=== PATIENT | female | born 1995 | race Caucasian/White ===

== ENCOUNTER → 2016-12-08 | Outpatient (CLI) | payer OTHER ==
--- NOTE | 2016-12-08 12:15 | WWHP ---
DATE OF SERVICE: 12/08/2016 CHIEF COMPLAINT: The patient is here for her routine gynecologic exam. HPI: This is a 21-year-old G0 with an LMP of 11/20/2016. The patient had a Mirena IUD placed by Dr. Renee in 10/2015. She states since then her periods have been infrequent and very light. Most months she does not have a period. She is without gynecologic complaints. PAST MEDICAL HISTORY: ADHD in the past. MEDICATIONS: None. ALLERGIES: No known drug allergies. PAST SURGICAL HISTORY: Unchanged from the 2015 H&P. 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 SOCIAL HISTORY: She denies tobacco and drug use and has less than 10 alcoholic drinks per month. She has been with her current boyfriend since 07/19 and does not live with him. 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 FAMILY HISTORY: Mother was diagnosed with early breast cancer at age 53. Father has type 2 diabetes. REVIEW OF SYSTEMS: She has gained about 3 pounds over the last year. She denies respiratory, cardiac, or GI problems. PHYSICAL EXAM: Blood pressure 125/59. Height 5 feet 3 inches. Weight 153 pounds. Temperature 97.0, pulse 65. This a well-developed, well-nourished white female who is alert and oriented x3 in no acute distress. HEENT is within normal limits. NECK: Supple without mass or thyromegaly. CHEST AND LUNGS: Clear to auscultation. HEART: Regular rate and rhythm. Breasts are without mass or discharge. Axillary exam is negative for adenopathy. BACK: Negative for CVA tenderness. ABDOMEN: Soft, nontender, without palpable masses. PELVIC EXAM: Normal external genitalia. Cervix and vagina appear normal. The IUD string protrudes from the cervix approximately 1 cm. There is no unusual discharge and no cervical motion tenderness. The uterus is slightly retroverted, nongravid size and nontender. There are no palpable adnexal masses or tenderness. Rectal exam was deferred. EXTREMITIES: Nontender. IMPRESSION: A 21-year-old gynecologically healthy female with the Mirena IUD in place and she is doing well with the IUD. PLAN: 1. Pap smear was deferred, since she had a normal one less than 2 years ago. 2. Self breast examination was discussed. 3. GC and Chlamydia screening from the cervix has been obtained. 4. STD prevention was discussed. I have recommended condom use. 5. She will return in one year.
== END | disposition home or self-care (01) ==
LOC: WWCWWP 10:24
PROVIDERS: ATTEND Obstetrics & Gynecology
DX: Z11.3 Encounter for screening for infections with a predominantly sexual mode of transmission (principal)
CPT/HCPCS: 87491; 87591

== ENCOUNTER → 2018-02-01 | Outpatient (CLI) | payer OTHER ==
[2018-02-01 11:56] VITALS: BP 115/77; RESP 12; TEMP 98; BMI 28.7
--- NOTE | 2018-02-01 13:28 | P.HPOB ---
History of Present Illness H&P Date: 02/01/18 Chief Complaint: The patient is here for her routine gynecologic exam. This is a 22-year-old G0 with an LMP of 01/29/2018. She has a Mirena IUD in place since 10/2015. She does have regular monthly periods which are very light. She is without gynecologic complaints. She does not plan on attempting in the next 3 years. Review of Systems She has gained 9 pounds over the last year. She denies respiratory, cardiac, or G.I. problems. 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 She has no history of STDs. Past Surgical History: Ear Surgery (Tubes placed in 2002), Hernia Repair (Right inguinal hernia repair in 2002), Orthopedic Surgery (Left ankle surgery 2014 and 2016.) Past Psychological History: ADD/ADHD (As a child) Smoking Status: Never smoker Past Alcohol Use History: Occasional (0 to 10 per month) Past Drug Use History: None Reported Additional History: She has been with her boyfriend since 2015 and lives with him. 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 - Past Family History Mother Family Medical History: Cancer (Early-stage breast cancer at age 53) Father Family Medical History: Diabetes Mellitus (Type II diabetes) Medications and Allergies Home Medications Medication Instructions Recorded Confirmed Type No Known Home Medications [No 02/01/18 02/01/18 History Known Home Medications] Allergies Allergy/AdvReac Type Severity Reaction Status Date / Time No Known Allergies Allergy Verified 02/01/18 12:23 Exam - Vital Signs Vital signs: Vital Signs Temp Resp BP 02/01/18 11:47 98.0 F 12 115/77 Intake and Output 01/31/18 02/01/18 02/01/18 22:59 06:59 14:59 Other: Weight 73.482 kg Height 5'3", BMI 28.7. This is a well-developed well-nourished white female who is alert and oriented times 3 in no acute distress. HEENT: Within normal limits. NECK: Supple without mass or thyromegaly. CHEST AND LUNGS: Clear to auscultation. HEART: Regular rate and rhythm. BREASTS: Are without mass or discharge. AXILLARY EXAM: Negative for adenopathy. BACK: Negative for CVA tenderness. ABDOMEN: Soft, nontender, without palpable masses. PELVIC EXAM: Normal external genitalia. Cervix and vagina appear normal with the IUD strings protruding from the cervix approximately 1.5 cm.. There is no unusual discharge. There is no evidence of prolapse. The uterus is midposition , slightly retroverted, nongravid size and nontender. There are no palpable adnexal masses or tenderness. RECTAL EXAM: deferred EXTREMITIES: Nontender. IMPRESSION: 1. 22 year old gynecologically healthy female doing well with a Mirena IUD PLAN: 1. Pap smear was performed. 2. Self breast awareness was discussed. 3. GC and Chlamydia screening was obtained from the cervix. 4. She will return in one year.
== END | disposition home or self-care (01) ==
LOC: WWCWWP 11:26
PROVIDERS: ATTEND Obstetrics & Gynecology
DX: Z53.9 Procedure and treatment not carried out, unspecified reason (principal)

== ENCOUNTER → 2019-03-15 | Outpatient (CLI) | payer OTHER ==
[2019-03-15 10:02] VITALS: BP 129/82; PULSE 71; RESP 16; TEMP 98.1; BMI 28.7
--- NOTE | 2019-03-15 10:38 | P.HPOB ---
History of Present Illness H&P Date: 03/15/19 Chief Complaint: The patient is here for her routine gynecologic exam. This is a 23-year-old G0 with an LMP of 03/08/2019. The patient has a Mirena IUD in place since October 2015. [place] menstrual periods are generally regular every month and very light. She did not have menstrual periods and January or February of this year. She is without gynecologic complaints. She is considering having the IUD removed without replacing it approximately in 2020. She is not interested in attempting in the upcoming year. Review of Systems The patient's weight has been stable over the last year. She denies respiratory, cardiac, or G.I. problems. 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 She has no history of STDs. History of Any Multi-Drug Resistant Organisms: None Reported Past Surgical History: Ear Surgery, Hernia Repair, Orthopedic Surgery Additional Past Surgical History / Comment(s): Ear tubes placed 2002, right inguinal hernia repaired 2002, left ankle surgeries and 2014 and 2016. Past Psychological History: ADD/ADHD Smoking Status: Never smoker Past Alcohol Use History: Occasional (3 per month) Past Drug Use History: None Reported Additional History: She has been with her boyfriend since 2015 and lives with him. 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 - Past Family History Mother Family Medical History: Cancer Additional Family Medical History / Comment(s): Early-stage breast cancer at age 53. Father Family Medical History: Diabetes Mellitus Additional Family Medical History / Comment(s): Type II diabetes. Medications and Allergies Home Medications Medication Instructions Recorded Confirmed Type Levonorgestrel [Mirena] 1 each 03/15/19 History Allergies Allergy/AdvReac Type Severity Reaction Status Date / Time No Known Allergies Allergy Verified 03/15/19 10:04 Exam Vital Signs Temp Pulse Resp BP Pulse Ox 03/15/19 09:30 98.1 F 71 16 129/82 98 Intake and Output 03/14/19 03/15/19 03/15/19 22:59 06:59 14:59 Other: Weight 73.482 kg Height 5'3", weight 162 pounds, BMI 28.7. This is a well-developed well-nourished white female who is alert and oriented times 3 in no acute distress. HEENT: Within normal limits. NECK: Supple without mass or thyromegaly. CHEST AND LUNGS: Clear to auscultation. HEART: Regular rate and rhythm. BREASTS: Are without mass or discharge. AXILLARY EXAM: Negative for adenopathy. BACK: Negative for CVA tenderness. ABDOMEN: Soft, nontender, without palpable masses. PELVIC EXAM: Normal external genitalia. Cervix and vagina appear normal with the IUD protruding from the cervix approximately 1.5 cm. There is no unusual discharge. There is no evidence of prolapse. The uterus is retroverted, nongravid size and nontender. There are no palpable adnexal masses or tenderne ss. RECTAL EXAM: deferred EXTREMITIES: Nontender. IMPRESSION: 1. 23-year-old female with the Mirena IUD in place since October 2015. 2. Normal gynecologic exam. PLAN: 1. Pap smear was deferred since she had a normal 1 02/01/2018. 2. Self breast awareness was discussed with the patient. 3. GC and chlamydia screening from the cervix has been obtained. 4. She was advised to return in one year for her annual well woman exam. She will call for an appointment if she desires to have the IUD removed to attempt .
[2019-03-16 16:09] LABS: C. trachomatis,PCR Negative (Neg,Equiv); Chlamydia trachomatis Source Cervix; N. gonorrhoeae,PCR Negative (Neg,Equiv); Neisseria Source Cervix
--- NOTE | 2019-03-21 18:34 | P.PN ---
Progress Note - Text Progress Note Date: 03/21/19 OUTPATIENT FOLLOW-UP NOTE TEST(S)/RESULTS: test results from 03/15/2019 included negative gonorrhea and negative GC testing. METHOD OF NOTIFICATION: the patient was notified by phone. PATIENT COMMENTS: DIAGNOSIS: negative GC and Chlamydia screening. DISCUSSION: PLAN: She was advised to return in one year for her annual well woman exam.
== END | disposition home or self-care (01) ==
LOC: WWCWWP 09:25
PROVIDERS: ATTEND Obstetrics & Gynecology
DX: Z01.419 Encounter for gynecological examination (general) (routine) without abnormal findings (principal); Z12.72 Encounter for screening for malignant neoplasm of vagina
CPT/HCPCS: 87491; 87591

== ENCOUNTER → 2020-05-07 | Outpatient (CLI) | payer OTHER ==
[2020-05-07 12:52] VITALS: BP 117/71; PULSE 78; RESP 16; TEMP 98.3
--- NOTE | 2020-05-07 13:32 | P.HPOB ---
History of Present Illness H&P Date: 05/07/20 Chief Complaint: The patient is here for her routine gynecologic exam. This is a 24-year-old G0 with an LMP of 04/13/2020. The patient has a Mirena IUD in place since October 2015. Her menstrual periods continue to be very light and occasionally does not have a menstrual period with the IUD. She is planning to get next month and plans to have the IUD removed in October 2020 when it is due to be removed or replaced. She is not interested in having it replaced but thinks she would like to start control pills at that time. She may be interested in starting a family in approximately 2 or 3 years. She is without gynecologic complaints. Review of Systems The patient's weight has been stable over the last year. She denies respiratory, cardiac, or G.I. problems. 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 She has no history of STDs. History of Any Multi-Drug Resistant Organisms: None Reported Past Surgical History: Ear Surgery, Hernia Repair, Orthopedic Surgery Additional Past Surgical History / Comment(s): Ear tubes placed 2002, right inguinal hernia repaired 2002, left ankle surgeries and 2014 and 2016. Past Psychological History: ADD/ADHD Smoking Status: Never smoker Past Alcohol Use History: Occasional (5 per month) Past Drug Use History: Marijuana - Past Family History Mother Family Medical History: Cancer Additional Family Medical History / Comment(s): Early-stage breast cancer at age 53. Sjogren's syndrome. Father Family Medical History: Diabetes Mellitus Additional Family Medical History / Comment(s): Type II diabetes. Medications and Allergies Home Medications Medication Instructions Recorded Confirmed Type Levonorgestrel [Mirena] 1 each INTRAUTERI DAILY 03/15/19 05/07/20 History Allergies Allergy/AdvReac Type Severity Reaction Status Date / Time No Known Allergies Allergy Verified 03/15/19 10:04 Exam Vital Signs Temp Pulse Resp BP Pulse Ox 05/07/20 12:49 98.3 F 78 16 117/71 99 Intake and Output 05/06/20 05/07/20 05/07/20 22:59 06:59 14:59 Other: Weight 73.936 kg Height 5 feet 4 inches, weight 163 pounds, BMI 28.0. This is a well-developed well-nourished white female who is alert and oriented times 3 in no acute distress. HEENT: Within normal limits. NECK: Supple without mass or thyromegaly. CHEST AND LUNGS: Clear to auscultation. HEART: Regular rate and rhythm. BREASTS: Are without mass or discharge. AXILLARY EXAM: Negative for adenopathy. BACK: Negative for CVA tenderness. ABDOMEN: Soft, nontender, without palpable masses. PELVIC EXAM: Normal external genitalia. Cervix and vagina appear normal. The IUD string protrudes from the cervix approximately 1 cm. There is no unusual discharge. There is no evidence of prolapse. The uterus is retroverted, nongravid size and nontender. There are no palpable adnexal masses or tenderness. RECTAL EXAM: Deferred. EXTREMITIES: Nontender. IMPRESSION: 1. 24-year-old female with Mirena IUD in place with normal gynecologic exam. PLAN: 1. Pap smear was performed. (Cytology only) 2. Self breast awareness was discussed with the patient. 3. control options were discussed with the patient. She will plan on starting control pills approximately 1-2 months prior to having the Mirena IUD removed in October 2020. We have discussed possible side effects with control pills as well as possible risks including blood clots. She has signed a control pill consent form stating that she understands these things. 4. She will call in approximately 4 months when she is ready to start the control pills. At that time we will call in a prescription for the pills. At that time she will also make an appointment for the removal of the Mirena IUD in October 2020. 5. She was advised to return in one year for her annual well woman exam.
--- NOTE | 2020-05-14 17:38 | P.PN ---
Progress Note - Text Progress Note Date: 05/14/20 OUTPATIENT FOLLOW-UP NOTE TEST(S)/RESULTS: Pap smear from 05/07/2020 was negative. It also indicates there was fungal elements noted as well as a shift in the bacteria timothy suggestive of bacterial vaginosis. METHOD OF NOTIFICATION: The patient was notified by phone. PATIENT COMMENTS: The patient denies having any vaginal discharge, odor or pruritus. DIAGNOSIS: Negative Pap smear. No symptoms of vaginitis. DISCUSSION: The patient was instructed to call if she develops any vaginal symptoms. PLAN: The patient will return in a partially 5 months for removal of the IUD as in the plan from her 05/07/2020 H&P.
== END | disposition home or self-care (01) ==
LOC: WWCWWP 12:26
PROVIDERS: ATTEND Obstetrics & Gynecology
DX: Z53.9 Procedure and treatment not carried out, unspecified reason (principal)

== ENCOUNTER → 2020-11-12 | Outpatient (CLI) | payer OTHER ==
[2020-11-12 09:37] VITALS: BP 118/82; PULSE 76; RESP 18; TEMP 98.4
--- NOTE | 2020-11-12 10:06 | P.PCN ---
Date of Procedure: 11/12/20 Preoperative Diagnosis: IUD Postoperative Diagnosis: IUD Procedure(s) Performed: Removal of Mirena IUD Anesthesia: none Surgeon: Abdirashid Casey Estimated Blood Loss (ml): 0 Pathology: none sent Condition: stable Disposition: same day Indications for Procedure: This was a 25-year-old G0 with an LMP of 10/12/2020 who had a Mirena IUD in place since October 2015. The Mirena IUD was due to be removed or replaced October 2020. The patient wanted the IUD removed and was started on oral contraception about 2-3 months ago. She is not interested in getting at this time and will continue to use oral contraception. She is here today to have her Mirena IUD removed. Operative Findings: The IUD string protruding from the cervix about 0.5 cm. There is no unusual discharge. Cervix appears normal. Description of Procedure: The patient was placed in the lithotomy position and the speculum was inserted into the vagina. The IUD string was grasped with Lily forceps and the IUD was removed without difficulty. The patient tolerated the procedure well. The estimated blood loss was 0 mL. Postprocedure blood pressure was 123/76, pulse 83 and pulse oximeter 99%. The patient was sent home in stable condition. She was instructed to call if she has any problems. She can take ibuprofen [id number] as needed as directed. She will return in approximate 7 months for her annual examination.
== END | disposition home or self-care (01) ==
LOC: WWCWWP 09:17
PROVIDERS: ATTEND Obstetrics & Gynecology
DX: Z53.9 Procedure and treatment not carried out, unspecified reason (principal)

== ENCOUNTER → 2021-08-06 | Outpatient (CLI) | payer BC ==
[2021-08-06 09:44] VITALS: BP 116/78; PULSE 74; RESP 16; TEMP 98.1
--- NOTE | 2021-08-06 10:26 | P.HPOB ---
History of Present Illness H&P Date: 08/06/21 Chief Complaint: The patient is here for her routine gynecologic exam. This is a 25-year-old G0 with an LMP of 06/30/2021. The patient is without gynecologic complaints. She has been on oral contraception now for about 1 year and denies any problems with oral contraception. She states she has not been missing pills. She does not plan on attempting in the upcoming year. She would like to continue oral contraception. Review of Systems The patient has lost 3 pounds over the last year. She denies respiratory, cardiac, or G.I. problems. 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 She has no history of STDs. History of Any Multi-Drug Resistant Organisms: None Reported Past Surgical History: Ear Surgery, Hernia Repair, Orthopedic Surgery Additional Past Surgical History / Comment(s): Ear tubes placed 2002, right inguinal hernia repaired 2002, left ankle surgeries and 2014 and 2016. Past Psychological History: ADD/ADHD Smoking Status: Never smoker Past Alcohol Use History: Occasional (3 per month) Past Drug Use History: Marijuana (Typically used at bedtime.) Additional History: She has been since 2019. 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 - Past Family History Mother Family Medical History: Cancer Additional Family Medical History / Comment(s): Early-stage breast cancer at age 53. Sjogren's syndrome. Father Family Medical History: Diabetes Mellitus Additional Family Medical History / Comment(s): Type II diabetes. Medications and Allergies Home Medications Medication Instructions Recorded Confirmed Type L.acidoph,Paracasei, B.lactis 1 each PO DAILY 11/12/20 08/06/21 History [Probiotic] Calcium Carb/Mag Ox/Zinc Sulf 1 each PO DAILY 08/06/21 08/06/21 History [Yzl-Fmk-Krvm 334-134-5 mg Tab] Glucosamine/MSM/Chrond/D3/Bosw 1 each PO DAILY 08/06/21 08/06/21 History [Bdtlrlomyup-Dllkhy-Ljj D3 Cplt] Multivitamin [Multivitamins Adult 1 each PO DAILY 08/06/21 08/06/21 History Gummies] Norethindrone-E.estradiol-Iron 1 each PO DAILY 08/06/21 08/06/21 History [Junel Fe 1.5 mg-30 Mcg Tablet] Allergies Allergy/AdvReac Type Severity Reaction Status Date / Time No Known Allergies Allergy Verified 08/06/21 09:35 Exam Vital Signs Temp Pulse Resp BP Pulse Ox 08/06/21 09:38 98.1 F 74 16 116/78 100 Intake and Output 08/05/21 08/06/21 08/06/21 22:59 06:59 14:59 Other: Weight 72.575 kg Height 5 feet 4 inches, weight 160 pounds, BMI 27.5. This is a well-developed well-nourished white female who is alert and oriented times 3 in no acute distress. HEENT: Within normal limits. NECK: Supple without mass or thyromegaly. CHEST AND LUNGS: Clear to auscultation. HEART: Regular rate and rhythm. BREASTS: Are without mass or discharge. AXILLARY EXAM: Negative for adenopathy. BACK: Negative for CVA tenderness. ABDOMEN: Soft, nontender, without palpable masses. PELVIC EXAM: Normal external genitalia. Cervix and vagina appear normal reveals a small amount of thin milky discharge without odor. The cervix and vagina are otherwise unremarkable. There is no cervical motion tenderness. There is no evidence of prolapse. The uterus is slightly retroverted, nongravid size and nontender. There are no palpable adnexal masses or tenderness. RECTAL EXAM: Deferred. EXTREMITIES: Nontender. IMPRESSION: 1. 25-year-old female with slight milky vaginal discharge. The patient states she notices a slight thin discharge during certain part of each cycle. Differential diagnosis will include physiologic discharge, bacterial vaginosis, and vaginal candidiasis. 2. Doing well on oral contraception. PLAN: 1. Pap smear was deferred since she had a normal one on 05/07/2020. 2. Self breast awareness was discussed with the patient. We have also discus sed symptoms associated with inflammatory breast cancer. 3. Continue oral contraception. The electronic prescription will be sent to [facility] in [facility]. 4. We have discussed preconception planning, for if and when she wants to attempt . She understands that a multivitamin with folic acid can decrease certain defects and I have recommended that she take a daily mul tivitamin especially if she intends to discontinue the control pills. 5. She has not received Covid vaccination. We have discussed advantages of the Covid vaccination and she will consider this. 6. Affirm vaginitis panel has been obtained from the vagina. 7. She was advised to return in one year for her annual well woman exam.
[2021-08-07 13:36] LABS: Gardnerella Positive (Negative); Source Vagina; Trichomonas Negative (Negative)
--- NOTE | 2021-08-08 09:53 | P.PN ---
Progress Note - Text Progress Note Date: 08/08/21 Affirm vaginitis panel done 08/06/21 for thin milky discharge was positive for Gardnerella and negative for Janis and Trichomonas. The patient was notified by phone. Impression: Bacterial Vaginosis Plan: Metronidazole 500mg PO BID x 7days. The electronic prescription was sent to [facility] in [facility]. She was instructed to avoid alcohol while on the medication. She is to call if problems.
== END ==
LOC: WWCWWP 09:31
PROVIDERS: ATTEND Obstetrics & Gynecology
DX: N76.0 Acute vaginitis (principal)
CPT/HCPCS: 87480; 87510; 87660